=== PATIENT | male | born 1990 | race Caucasian/White ===

== ENCOUNTER 2016-12-09 16:30 | Emergency (ER) | payer OTHER ==
[2016-12-09 16:37] VITALS: BP 132/90
[2016-12-09] MEDS ORDERED: HYDROCODONE/ACETAMINOPHEN 5-325 MG TABLET PO ONE (17:05)
[2016-12-09] MEDS ORDERED: IBUPROFEN 600 MG TABLET PO ONE (17:05)
[2016-12-09] MEDS ORDERED: ONDANSETRON 4 MG TAB.RAPDIS PO ONE (17:35)
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
[2016-12-09] MEDS ORDERED: MORPHINE SULFATE 10 MG/ML INJ IM ONE (18:23)
== END 2016-12-09 19:09 | disposition home or self-care (01) ==
LOC: ER 16:30
DX: S40.211A Abrasion of right shoulder, initial encounter (principal); S50.812A Abrasion of left forearm, initial encounter; S70.312A Abrasion, left thigh, initial encounter; V29.9XXA Motorcycle rider (driver) (passenger) injured in unspecified traffic accident, initial encounter; M25.511 Pain in right shoulder; M79.632 Pain in left forearm; M79.645 Pain in left finger(s); M54.5 Low back pain; R00.0 Tachycardia, unspecified; Z79.899 Other long term (current) drug therapy; Z91.018 Allergy to other foods; Z87.891 Personal history of nicotine dependence
CPT/HCPCS: 99283; 73090; 73130; 72110; 73030; S0119; J2270